=== PATIENT | female | born 1950 | race Caucasian/White ===

== ENCOUNTER 2017-09-12 08:49 | Day surgery (SDC) | payer BC ==
[~2017-09-12] VITALS: Ht 165.1 cm; Wt 70.8 kg
[~2017-09-12 08:49] MED LIST: CALCIUM 600 MG1 EACH PO; CALCIUM 600+D1 EAC1 PO; CALCIUM 600+D31 EACH PO; COLACE100 MG PO; DILTIAZEM 24HR180 MG PO; INSULIN PUMP MC; IRON325 M1 PO; LO-DOSE ASPIRIN81 M2 PO; NEURONTIN600 MG PO; PLAVIX75 MG PO; PRAVACHOL40 MG PO; PRINIVIL10 MG PO; SYNTHROID100 MCG PO; ZANTAC300 MG PO
[2017-09-12 10:28] VITALS: BP 121/83
[2017-09-12 13:22] VITALS: BP 132/67
[2017-09-12 14:20] VITALS: BP 144/62
== END 2017-09-12 14:30 | disposition home or self-care (01) ==
LOC: SDC 08:49
PROVIDERS: Internal Medicine
PROC: 08B53ZZ Excision of Left Vitreous, Percutaneous Approach (ICD-10-PCS; principal; 2017-09-12)
DX: H33.022 Retinal detachment with multiple breaks, left eye (principal); H43.12 Vitreous hemorrhage, left eye; E11.319 Type 2 diabetes mellitus with unspecified diabetic retinopathy without macular edema; I12.0 Hypertensive chronic kidney disease with stage 5 chronic kidney disease or end stage renal disease; E11.22 Type 2 diabetes mellitus with diabetic chronic kidney disease; N18.6 End stage renal disease; E78.00 Pure hypercholesterolemia, unspecified; E03.9 Hypothyroidism, unspecified; K21.9 Gastro-esophageal reflux disease without esophagitis; Z87.891 Personal history of nicotine dependence; Z79.02 Long term (current) use of antithrombotics/antiplatelets; Z79.82 Long term (current) use of aspirin
CPT/HCPCS: 82948; J0690